=== PATIENT | female | born 1935 | race African-American/Black ===

== ENCOUNTER 2019-02-28 06:36 | Day surgery (SDC) | payer MEDICARE, BC ==
[~2019-02-28] VITALS: Ht 170.2 cm; Wt 72.6 kg
[~2019-02-28 06:36] MED LIST: AMLO5TAB88 PO; HYDR12.54 PO; LOSA100T32 PO; SAXA2.5T PO
[2019-02-28] MEDS ORDERED: CHOL500051 PO (07:03)
[2019-02-28] MEDS ORDERED: LACTATED RINGERS 1,000 ML IV SCH (08:00)
[2019-02-28] MEDS ORDERED: PROPOFOL 200MG/20ML VIAL IV ONE (09:58)
[2019-02-28] MEDS ORDERED: FENTANYL CITRATE/PF 50MCG/ML 2ML VIAL ONE (09:58)
[2019-02-28] MEDS ORDERED: MIDAZOLAM HCL 2 MG/2 ML VIAL ONE (09:58)
[2019-02-28] MEDS ORDERED: CIPROFLOXACIN 0.3% OPHTH SOLN 2.5ML ONE (14:58)
[2019-02-28] MEDS ORDERED: BALANCED SALT IRRIG SOLN 15ML ONE (14:58)
[2019-02-28] MEDS ORDERED: LIDOCAINE HCL 2%/EPINEPHRINE 1:100,000 20 ML VIAL INFIL ONE (14:58)
[2019-02-28] MEDS ORDERED: PREDNISOLONE ACETATE 1% OPHTH DROPS 1ML ONE (14:58)
[2019-02-28] MEDS ORDERED: ACETYLCHOLINE CHLORIDE INTRAOCULAR SOLUTION 1:100 ELECTROLYTE DILUENT IO ONE (14:58)
[2019-02-28] MEDS ORDERED: TETRACAINE 0.5% OPHTH DROPS 4ML ONE (14:58)
[2019-02-28] MEDS ORDERED: NEO/POLYMYX B SULF/DEXAMETH OPHTH OINT 3.5GM ONE (14:58)
[2019-02-28] MEDS ORDERED: BUPIVACAINE HCL/PF 0.75% (7.5MG/ML) 10ML ONE (14:58)
== END 2019-02-28 12:54 | disposition home or self-care (01) ==
LOC: OR 06:36
PROVIDERS: ATTEND Ophthalmology
DX: E11.39 Type 2 diabetes mellitus with other diabetic ophthalmic complication (principal); H40.1130 Primary open-angle glaucoma, bilateral, stage unspecified; I10 Essential (primary) hypertension; H04.123 Dry eye syndrome of bilateral lacrimal glands; F03.90 Unspecified dementia, unspecified severity, without behavioral disturbance, psychotic disturbance, mood disturbance, and anxiety; E78.5 Hyperlipidemia, unspecified; H40.052 Ocular hypertension, left eye; M17.9 Osteoarthritis of knee, unspecified; I25.10 Atherosclerotic heart disease of native coronary artery without angina pectoris; Z79.899 Other long term (current) drug therapy
CPT/HCPCS: 66170; 82962; J2250; J2704; J3010; J3301; J3490

== ENCOUNTER 2019-09-19 09:56 | Day surgery (SDC) | payer MEDICARE, BC ==
[~2019-09-19] VITALS: Ht 170.2 cm; Wt 72.6 kg
[~2019-09-19 09:56] MED LIST changes: +CHOL500051 PO
[2019-09-19] MEDS ORDERED: SODIUM CHLORIDE 0.9% 1,000 ML IV SCH (10:00)
[2019-09-19] MEDS ORDERED: ATOR40TA70 MT (11:44)
[2019-09-19] MEDS ORDERED: MITOMYCIN 0.2 MG KIT OP ONE (12:45)
[2019-09-19] MEDS ORDERED: LIDOCAINE HCL 2%/EPINEPHRINE 1:100,000 20 ML VIAL INFIL ONE (15:58)
[2019-09-19] MEDS ORDERED: CIPROFLOXACIN 0.3% OPHTH SOLN 2.5ML ONE (15:58)
[2019-09-19] MEDS ORDERED: BALANCED SALT IRRIG SOLN 15ML ONE (15:58)
[2019-09-19] MEDS ORDERED: PREDNISOLONE ACETATE 1% OPHTH DROPS 5ML ONE (15:58)
[2019-09-19] MEDS ORDERED: LIDOCAINE HCL/PF 2% 20 MG/ML 10ML VIAL ONE (15:58)
[2019-09-19] MEDS ORDERED: TETRACAINE 0.5% OPHTH DROPS 4ML ONE (15:58)
[2019-09-19] MEDS ORDERED: BUPIVACAINE HCL/PF 0.75% (7.5MG/ML) 10ML ONE (15:58)
== END 2019-09-19 15:25 | disposition home or self-care (01) ==
LOC: OR 09:56
PROVIDERS: ATTEND Ophthalmology
DX: E11.39 Type 2 diabetes mellitus with other diabetic ophthalmic complication (principal); H40.89 Other specified glaucoma; E78.00 Pure hypercholesterolemia, unspecified; H40.051 Ocular hypertension, right eye; Z79.899 Other long term (current) drug therapy; Z98.42 Cataract extraction status, left eye; Z98.41 Cataract extraction status, right eye; Z98.890 Other specified postprocedural states
CPT/HCPCS: 66170; 82962; J3490; J9280